=== PATIENT | female | born 1960 | race Caucasian/White ===

== ENCOUNTER 2020-12-08 14:01 | Outpatient (CLI) | payer BC | END 2020-12-08 14:02 | disposition home or self-care (01) | LOC: CSHMAMMO 14:01 | PROVIDERS: ATTEND Internal Medicine Hematology & Oncology | DX: Z12.31 Encounter for screening mammogram for malignant neoplasm of breast (principal); Z85.3 Personal history of malignant neoplasm of breast; Z80.3 Family history of malignant neoplasm of breast | CPT/HCPCS: 77063; 77067 ==